=== PATIENT | female | born 1955 | race Caucasian/White ===

== ENCOUNTER 2019-06-19 17:26 | Emergency (ER) | payer OTHER ==
[~2019-06-19] VITALS: Wt 104.3 kg
[~2019-06-19 17:26] MED LIST: FLEXERIL10 MG PO; MOTRIN800 MG PO; SYNTHROID,LEV112 MCG PO
[2019-06-20] MEDS ORDERED: NORCO 5-325 TA1 EACH PO (00:18)
== END 2019-06-20 00:24 | disposition home or self-care (01) ==
LOC: ED 17:26
DX: S43.015A Anterior dislocation of left humerus, initial encounter (principal); S42.292A Other displaced fracture of upper end of left humerus, initial encounter for closed fracture; M25.522 Pain in left elbow; R20.2 Paresthesia of skin; M25.561 Pain in right knee; Z88.2 Allergy status to sulfonamides; Z79.899 Other long term (current) drug therapy; Z90.710 Acquired absence of both cervix and uterus; Z90.49 Acquired absence of other specified parts of digestive tract; W01.0XXA Fall on same level from slipping, tripping and stumbling without subsequent striking against object, initial encounter; Y93.89 Activity, other specified; Y92.59 Other trade areas as the place of occurrence of the external cause; Y99.8 Other external cause status

== ENCOUNTER 2022-04-07 08:55 | Emergency (ER) | payer OTHER ==
[~2022-04-07] VITALS: Ht 152.4 cm; Wt 101.6 kg
[~2022-04-07 08:55] MED LIST changes: +NORCO 5-325 TA1 EACH PO
[2022-04-07 10:02] LABS: HEMATOCRIT 33.4 % (37.0-47.0); MANUAL DIFF REFLEX YES; MEAN CELL VOLUME 94.4 fl (81.0-99.0); MEAN CORPUSCULAR HGB 31.9 pg (27.0-31.0); MEAN CORPUSCULAR HGB CONC 33.8 g/dl (33.0-37.0); MEAN PLATELET VOLUME 9.5 fl (9.6-12.3); PLATELET COUNT AUTOMATED 49 10*3/uL (130-400); RED BLOOD COUNT 3.54 10*6/uL (4.10-5.10); RED CELL DISTRI WIDTH 14.2 % (0-14.5)
[2022-04-07 10:03] LABS: WHITE BLOOD COUNT 1.2 10*3/uL (4.8-10.8)
[2022-04-07 10:11] LABS: ACT PARTIAL THROMBO TIME 42.7 SECONDS (20.0-32.1); INTERNATIONAL NORM RATIO 1.2 (2.0-3.5)
[2022-04-07 10:17] LABS: ALKALINE PHOSPHATASE 53 U/L (46-116); BUN 12 mg/dl (9-23); CHLORIDE 92 mmol/L (98-107); POTASSIUM 3.4 mmol/L (3.4-5.1); SGPT/ALT 50 U/L (10-49); TOTAL PROTEIN 7.3 gm/dL (6.0-8.0)
[2022-04-07 10:31] LABS: ATYPICAL LYMPHS 6 % (0-0); POLYCHROMASIA SLIGHT; TOTAL CELLS COUNTED 100 #CELLS
[2022-04-07 10:33] LABS: PLATELET SUFFICIENCY LOW (NORMAL)
[2022-04-07] MEDS ORDERED: PIPERACIL-TAZO4.5 G1 IV (15:04)
[2022-04-07 15:24] LABS: BILIRUBIN Negative (Negative); BLOOD Negative (Negative); CLARITY Cloudy (Clear); COLOR Yellow (Yellow); GLUCOSE Negative (Negative); KETONE Negative (Negative); LEUKO ESTERASE Negative (Negative); NITRITE Negative (Negative); PH 5.5 (4.5-8.0); UROBILINOGEN 0.2 E.U./dl (0.0-1.0)
[2022-04-07 15:59] LABS: BACTERIA 2+; RBC 0-2 rbc/hpf (0-2); WBC 0-2 wbc/hpf (0-5)
== END 2022-04-07 18:05 | disposition short-term general hospital (02) ==
LOC: ED 08:55
PROVIDERS: Emergency Medicine
DX: D70.3 Neutropenia due to infection (principal); E87.1 Hypo-osmolality and hyponatremia; F17.200 Nicotine dependence, unspecified, uncomplicated; Z88.2 Allergy status to sulfonamides; Z90.710 Acquired absence of both cervix and uterus; Z90.49 Acquired absence of other specified parts of digestive tract; Z98.890 Other specified postprocedural states; Z90.89 Acquired absence of other organs

== ENCOUNTER → 2022-11-30 | Outpatient (CLI) | payer OTHER ==
[~2022-11-30] MED LIST changes: +PIPERACIL-TAZO4.5 G1 IV
== END | disposition home or self-care (01) ==
LOC: RESCLI 00:08
PROVIDERS: ATTEND Internal Medicine
DX: E55.9 Vitamin D deficiency, unspecified (principal); E03.9 Hypothyroidism, unspecified; E11.9 Type 2 diabetes mellitus without complications; I10 Essential (primary) hypertension; E66.9 Obesity, unspecified; Z68.41 Body mass index [BMI] 40.0-44.9, adult; Z79.899 Other long term (current) drug therapy; Z90.710 Acquired absence of both cervix and uterus; Z90.49 Acquired absence of other specified parts of digestive tract; Z98.890 Other specified postprocedural states; Z82.49 Family history of ischemic heart disease and other diseases of the circulatory system; Z83.3 Family history of diabetes mellitus; Z83.49 Family history of other endocrine, nutritional and metabolic diseases; Z88.2 Allergy status to sulfonamides; Z88.8 Allergy status to other drugs, medicaments and biological substances